=== PATIENT | female | born 1990 | race Caucasian/White ===

== ENCOUNTER 2016-11-24 08:37 | Emergency (ER) | payer OTHER ==
[~2016-11-24] VITALS: Ht 154.9 cm; Wt 81.0 kg
[2016-11-24 12:47] VITALS: BP 112/68
== END 2016-11-24 14:23 | disposition home or self-care (01) ==
LOC: ER 09:23
DX: S63.619A Unspecified sprain of unspecified finger, initial encounter (principal); F17.210 Nicotine dependence, cigarettes, uncomplicated; X50.9XXA Other and unspecified overexertion or strenuous movements or postures, initial encounter; Y93.89 Activity, other specified; Y92.89 Other specified places as the place of occurrence of the external cause
CPT/HCPCS: 29130; 73110; 73130; 81025; 99284